=== PATIENT | female | born 1950 ===

== ENCOUNTER 2019-05-19 07:41 | Emergency (ER) | payer OTHER ==
[~2019-05-19] VITALS: Ht 162.6 cm; Wt 71.7 kg
[2019-05-19] MEDS ORDERED: LISINOPRIL20 MG (08:22)
[2019-05-19] MEDS ORDERED: NORVASC2.5 M1 (08:23)
[2019-05-19] MEDS ORDERED: SYNTHROID75 MCG (08:23)
[2019-05-19] MEDS ORDERED: FOLIC ACID1 MG (08:23)
[2019-05-19] MEDS ORDERED: KETO10TA2 PO (10:12)
[2019-05-19] MEDS ORDERED: SKELAXIN800 MG PO (10:12)
== END 2019-05-19 10:29 | disposition home or self-care (01) ==
LOC: ER 07:41
DX: S33.5XXA Sprain of ligaments of lumbar spine, initial encounter (principal); S19.89XA Other specified injuries of other specified part of neck, initial encounter; S29.8XXA Other specified injuries of thorax, initial encounter; W10.8XXA Fall (on) (from) other stairs and steps, initial encounter; Y93.89 Activity, other specified; Y92.018 Other place in single-family (private) house as the place of occurrence of the external cause; Y99.8 Other external cause status

== ENCOUNTER 2021-05-21 08:09 | Outpatient (CLI) | payer OTHER ==
[~2021-05-21 08:09] MED LIST: FOLIC ACID1 MG; KETO10TA2 PO; LISINOPRIL20 MG; NORVASC2.5 M1; SKELAXIN800 MG PO; SYNTHROID75 MCG
== END 2021-05-21 08:31 | disposition home or self-care (01) ==
LOC: SONOGRAMA 08:09 → MAMO-SONO 09:00
PROVIDERS: ATTEND Internal Medicine Rheumatology
DX: M65.811 Other synovitis and tenosynovitis, right shoulder (principal)